=== PATIENT | female | born 1990 | race Two or more races ===

== ENCOUNTER 2024-02-25 11:56 | Emergency (ER) | payer MEDICAID, SELFPAY ==
[2024-02-25 12:10] VITALS: BP 151/93; PULSE 83; RESP 19; TEMP 37; O2SAT 98
--- NOTE | 2024-02-25 12:17 | EKG_ITS ---
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
--- NOTE | 2024-02-25 12:17 | XR_ITS ---
Examination: PA lateral chest 2 views Technique: Upright PA lateral chest 2 views Exam date and time: February 25, 2024 1238 hrs. Indications: Chest pain today Findings: Normal heart size Lungs are clear. The osseous structures are intact Impression: No active disease
--- NOTE | 2024-02-25 12:18 | PD.EDRME ---
Rapid Medical Screening Exam RME Arrival date/time: 02/25/24 11:56 33-year-old female with no past medical history presents emergency department complaining of left-sided chest pain with numbness to left arm and neck that started today while she was driving back from school and received bad news. Chief Complaint: Anxiety Vital signs: Vital Signs Temperature 98.6 F 02/25/24 12:10 Pulse Rate 83 02/25/24 12:10 Respiratory Rate 19 02/25/24 12:10 Blood Pressure 151/93 H 02/25/24 12:10 Pulse Oximetry (%) 98 02/25/24 12:10 Oxygen Delivery Method Room Air 02/25/24 12:10 Vital signs reviewed by provider: Yes
[2024-02-25] MEDS: DIAZEPAM 5 MG TABLET PO (12:27)
[2024-02-25 12:43] LABS: Basophils # (Auto) 0.1 Thou/mm3 (0.0-0.2); Basophils % (Auto) 1 % (0-2.5); Eosinophils # (Auto) 0.2 Thou/mm3 (0.0-0.5); Eosinophils % (Auto) 2 % (0-10); Hematocrit 40.5 % (36.0-46.0); Immature Granulocytes % (Auto) 0 % (0-0); Immature Granulocytes Auto 0.02 Thou/mm3 (0.00-0.00); Lymphocytes # (Auto) 1.4 Thou/mm3 (1.0-4.8); Lymphocytes % (Auto) 20 % (10-50); Mean Corpuscular HGB Conc 34.6 g/dl (31.0-37.0); Mean Corpuscular Hemoglobin 29.4 pg (25.0-35.0); Mean Corpuscular Volume 85 fL (80-100); Monocytes # (Auto) 0.5 Thou/mm3 (0.0-0.8); Monocytes % (Auto) 8 % (0-12); Neutrophils # (Auto) 4.9 Thou/mm3 (1.8-7.7); Neutrophils % (Auto) 69 % (37-80); Nucleated Red Blood Cell % 0 /100 WBC (0); Platelet Count 290 Thou/mm3 (140-440); RDW Standard Deviation 41.1 fL (36.4-46.3); Red Blood Count 4.77 Miln/mm3 (4.00-5.20)
[2024-02-25 12:58] LABS: INR 1.1 (0.9-1.3); Partial Thromboplastin Time 22.2 Seconds (22.0-36.0); Prothrombin Time 11.9 Seconds (9.0-12.2)
[2024-02-25 12:59] LABS: B-Type Natriuretic Peptide < 20 pg/mL (0-100)
[2024-02-25 13:00] LABS: Alanine Aminotransferase 14 U/L (10-49); Albumin, Serum 4.5 gm/dL (3.5-5.0); Albumin/Globulin Ratio 1.5 (1.2-2.2); Alkaline Phosphatase 94 U/L (46-116); Anion Gap 9 (7-16); Aspartate Amino Transferase 16 U/L (0-34); BUN/Creatinine Ratio 9 Ratio (12-20); Blood Urea Nitrogen 6 mg/dL (9-23); Calcium 10.1 mg/dL (8.3-10.6); Calcium (Corrected) 10.1 mg/dL (8.5-10.1); Carbon Dioxide 26.5 mMol/L (20.0-31.0); Chloride 103 mMol/L (98-107); Creatinine (Component) 0.7 mg/dL (0.6-1.3); Globulin 3.1 gm/dL (2.3-3.5); Glucose 114 mg/dL (74-106); Magnesium 1.8 mg/dL (1.6-2.6); Osmolality,Calculated 274 (275-295); Potassium 3.3 mMol/L (3.4-5.1); Sodium 138 mMol/L (136-145); Total Protein 7.6 gm/dL (5.7-8.2); Troponin I < 0.002 ng/mL (0.0-0.045); eGFR > 60 See Note
[2024-02-25 13:38] LABS: Collection Type, Urine Clean Catch
[2024-02-25 13:56] LABS: Bacteria,Urine 4+; Bilirubin,Urine Negative (Negative); Blood,Urine 1+ (Negative); Clarity,Urine Turbid (Clear/Hazy); Color,Urine Yellow (Lt Yel-Yel); Glucose, Urine Negative (Negative); Ketones,Urine 1+ (Negative); Leukocyte Esterase,Urine Negative (Negative); Nitrite,Urine Negative (Negative); PH,Urine 6.5 (5.0-7.0); Protein,Urine Trace (Neg - Trace); RBC,Urine < 1 /hpf (0-3); Specific Gravity,Urine 1.027 (1.001-1.035); Squamous Epithelial Cell,Urine 2 /hpf (0-5); Urobilinogen,Urine Negative mg/dL (0.0-1.0); WBC,Urine 1 /hpf (0-5)
[2024-02-25 13:56] LABS: Amphetamine/Methamp Scrn,U Negative (Negative); Barbiturate Screen,Urine Negative (Negative); Benzodiazepines Screen,Urine Negative (Negative); Benzoylecgonine Screen, Ur Negative (Negative); Fentanyl Screen,Urine Negative (Negative); Opiate Screen,Urine Negative (Negative); THC Screen,Urine Negative (Negative)
[2024-02-25 13:57] LABS: Culture Indicated,Urine Yes
[2024-02-25 14:03] LABS: HCG Qualitative,Urine Negative
--- NOTE | 2024-02-25 15:06 | PD.EDANX ---
ED Anxiety RME/HPI General Chief Complaint: Anxiety Stated Complaint: LEFT SIDED FACIAL/ARM TINGLING, ANXIOUS Time Seen by Provider: 02/25/24 12:19 Source: patient Arrival date/time: 02/25/24 11:56 33-year-old female with no past medical history presents emergency department complaining of left-sided chest pain with numbness to left arm and neck that started today while she was driving back from school and received bad news. Patient denies any fever, chills, n/v, diarrhea, cough, sob, or any other associated symptoms. Mode of arrival: ambulatory Limitations: no limitations RME / HPI RME / HPI narrative: 02/25/24 11:56 33-year-old female with no past medical history presents emergency department complaining of left-sided chest pain with numbness to left arm and neck that started today while she was driving back from school and received bad news. Related Data Home Medications ?Medication ?Instructions ?Recorded ?Confirmed albuterol sulfate 90 mcg/actuation 2 puff inhalation Q4H PRN sob 02/05/18 04/24/20 aerosol inhaler metoclopramide HCl 10 mg tablet 10 mg PO TID PRN n/v 04/24/20 04/24/20 omeprazole 40 mg capsule,delayed 40 mg PO QDAY 04/24/20 04/24/20 release ondansetron HCl 8 mg tablet 8 mg PO TID PRN n/v 04/24/20 04/24/20 Previous Rx's ?Medication ?Instructions ?Recorded promethazine 25 mg rectal 25 mg CA Q6H PRN nausea and 04/24/20 suppository vomiting #12 ea ibuprofen 800 mg tablet 800 mg PO Q6H PRN pain #10 tabs 01/08/21 sulfacetamide sodium 10 % eye 2 drp ophthalmic (eye) Q3H #5 mL 09/18/21 drops (Bleph-10) montelukast 10 mg tablet 10 mg PO QDAY #30 tabs 11/01/21 prednisone 20 mg tablet 20 mg PO QDAY #7 tabs 11/01/21 sulfamethoxazole 800 1 tab PO BID #20 tabs 11/01/21 mg-trimethoprim 160 mg tablet (Bactrim DS) meloxicam 7.5 mg tablet 7.5 mg PO QDAY #10 tabs 10/10/22 albuterol sulfate 90 mcg/actuation 1 inh inhalation QID #6.7 grams 03/16/22 aerosol inhaler pantoprazole 40 mg tablet,delayed 40 mg PO QDAY #30 tabs 05/07/22 release (Protonix) Allergies Allergy/AdvReac Type Severity Reaction Status Date / Time Penicillins Allergy Intermediate Hives Verified 05/07/22 10:18 adhesive tape Allergy Rash Verified 05/07/22 10:18 metoclopramide [From Reglan] Allergy Anxiety Verified 05/07/22 10:18 sulfamethoxazole Allergy Hives Verified 05/07/22 10:18 [From Bactrim] trimethoprim [From Bactrim] Allergy Hives Verified 05/07/22 10:18 Review of Systems Review of Systems Systems Reviewed: All systems reviewed, normal except as documented Constitutional Constitutional: Reports system reviewed and no additional complaints, except as documented, Denies body ache(s), Denies chills and Denies fever(s) Eyes Eyes: Reports system reviewed and no additional complaints, except as documented and Denies change in vision ENT Ears, Nose, Mouth, and Throat: Reports system reviewed and no additional complaints, except as documented, Denies disequilibrium, Denies dizziness, Denies sore throat and Denies vertigo Cardiovascular Cardiovascular: Reports system reviewed and no additional complaints, except as documented, Reports chest pain and Denies dyspnea Respiratory Respiratory: Reports system reviewed and no additional complaints, except as documented, Denies chest congestion, Denies cough and Denies dyspnea Gastrointestinal Gastrointestinal: Reports system reviewed and no additional complaints, except as documented, Denies abdominal pain, Denies nausea and Denies vomiting Musculoskeletal Musculoskeletal: Reports system reviewed and no additional complaints, except as documented, Denies abnormal gait and Denies arthralgias Integumentary/Breasts Skin/Breast: Reports system reviewed and no additional complaints, except as documented, Denies erythema, Denies rash and Denies wounds Neurologic Neurologic: Reports system reviewed and no additional complaints, except as documented, Denies abnormal gait, Denies disequilibrium, Denies dizziness and Denies vertigo Past Medical History Past Medical History CARDIAC: Negative Cardiac Disorders or Congestive Heart Failure RESPIRATORY: Positive Asthma; Negative Chronic Obstructive Pulmonary Disease (COPD) GASTROINTESTINAL: Positive Gastrointestinal Disorders GENITOURINARY: Negative Renal Disease ENDOCRINE: Negative Diabetes Mellitus Type 1 or Diabetes Mellitus Type 2 HEMATOLOGIC: Negative Sickle Cell Disease Surgical History SURGICAL: Positive Abdominal Surgery (gastric sleeve 2020), Hysterectomy and Section Social History SMOKING STATUS: Never smoker SUBSTANCE USE: does not use ED Exam General Limitations: Present no limitations General appearance: Present alert and in no apparent distress Head Head exam: Present atraumatic Eye Eye exam: Present normal appearance, PERRL and EOMI ENT ENT exam: Present normal exam, normal oropharynx and mucous membranes moist Neck Neck exam: Present normal inspection, full ROM and trachea midline Chest Chest inspection: Present normal inspection and symmetric chest wall rise Respiratory Respiratory exam: Present normal lung sounds bilaterally Cardiovascular Cardiovascular exam: Present regular rate, normal rhythm and normal heart sounds Abdominal Exam Abdominal exam: Present soft and normal bowel sounds Extremities Exam Extremities exam: Present normal inspection and full ROM Back Exam Back exam: Present normal inspection and full ROM Neurological Exam Neurological exam: Present alert, oriented X3 and CN II-XII intact Psychiatric Psychiatric exam: Present normal affect and normal mood Skin Skin exam: Present warm, dry, intact and normal color Course Quality Measures none Orders Category Date Time Status EKG (ED ONLY) *Do not use* NOW Care 02/25/24 12:17 Completed EKG (ED Only) Stat Exams 02/25/24 12:17 Draft XR chest 2V Stat Exams 02/25/24 12:17 Completed B-Type Natriuretic Peptide Stat Lab 02/25/24 12:32 Completed CBC Stat Lab 02/25/24 12:32 Completed Comprehensive Metabolic Panel Stat Lab 02/25/24 12:32 Completed Drug Screen,Urine Stat Lab 02/25/24 13:17 Completed HCG Qualitative,Urine Stat Lab 02/25/24 13:24 Completed Magnesium Stat Lab 02/25/24 12:32 Completed Partial Thromboplastin Time Stat Lab 02/25/24 12:32 Completed Prothrombin Time with INR Stat Lab 02/25/24 12:32 Completed Troponin I Stat Lab 02/25/24 12:32 Completed Urinalysis, C/S if Indicated Stat Lab 02/25/24 13:24 Completed Urine Culture Stat Lab 02/25/24 13:24 Received Diazepam [Valium] Med 02/25/24 12:18 Discontinued 5 mg PO X1 ONE Vital Signs Vital signs: Vital Signs Temperature 98.6 F 02/25/24 12:10 Pulse Rate 83 02/25/24 12:10 Respiratory Rate 19 02/25/24 12:10 Blood Pressure 151/93 H 02/25/24 12:10 Pulse Oximetry (%) 98 02/25/24 12:10 Oxygen Delivery Method Room Air 02/25/24 12:10 98% RA WNL. Procedures -ED EKG Interpretation #1: Date of EK02/25/24 Time of EK:34 Rate: 75 Interpretation: Interpreted by me EKG Impression: Normal sinus rhythm, No acute ST-T changes, No ectopy and No ischemic changes Anxiety MDM Narrative MDM Narrative: 33-year-old female with no past medical history presents emergency department complaining of left-sided chest pain with numbness to left arm and neck that started today while she was driving back from school and received bad news. Patient denies any fever, chills, n/v, diarrhea, cough, sob, or any other associated symptoms. CBC, CMP, U/A, Chest XR unremarkable. Troponin WNL, EKG SR. Patient likely suffered from acute anxiety attack due to bad news and family crisis. Patient denies any SI, HI, or hallucinations. Patient GCS 15 reporting symptoms improved after medication. Patient data External records reviewed:: [facility] previous records Clinical information provided by:: patient Social determinants that could affect healthcare access:: none Patient has the following chronic illnesses:: see chart How is presenting disease/condition affected by chronic disease/condition?: no chronic disease Evaluation data The following diagnostics were reviewed and interpreted by me:: lab results, radiology exam(s) and EKG tracing(s) Lab and/or radiology exams considered but not ordered:: ordered Interpretation Summary: interpreted by me Medications / Prescriptions Medications or Prescriptions considered but not ordered:: n/a Medication administrations:: Medication Administration History Discontinued Medications Diazepam (Diazepam 5 Mg Tablet) 5 mg PO X1 ONE Stop: 02/25/24 12:19 Last Admin: 02/25/24 12:27 Dose: 5 mg Documented By: VG Comments: SCANNER NOT WORKING ON OTHER WOW, PT IS MANUALLY ENTERED, MED SCANNED ON DIFFERENT WOW Consultations Consultation(s) initiated? (list below): No Diagnosis Differential diagnosis anxiety: hyperventilation, panic disorder and acute anxiety Most likely diagnosis given after review of the tests above:: non cardiac chest pain Admission Indicated Admission indicated?: not indicated Admission Request Was there a request for admission?: No Disposition Plan Disposition Plan: Discharge Discharge Attestation Discharge Attestation: The patient and all family members were given an opportunity to ask questions and understood the discharge instructions. Discharge instructions specifically effects, indications for sooner follow up or return to the emergency department, and the expected course of current diagnosis. Patient condition: Stable Discharge Plan Plan Patient Disposition: HOME (Self Care) Disposition Comment: Stable Prescriptions/Referrals Prescriptions/Med Rec: No Action ondansetron HCl 8 mg tablet 8 mg PO TID PRN (Reason: n/v) omeprazole [Prilosec] 40 mg Capsule,Delayed Release(Dr/Ec) 40 mg PO QDAY metoclopramide HCl 10 mg tablet 10 mg PO TID PRN (Reason: n/v) promethazine 25 mg suppository 25 mg CA Q6H PRN (Reason: nausea and vomiting) Qty: 12 0RF Rx Instructions: 1-2 suppository every 6 hours as needed for nausea. Do not use with Metoclopramide(Reglan). sulfamethoxazole-trimethoprim [Bactrim DS] 800-160 mg tablet 1 tab PO BID Qty: 20 0RF prednisone 20 mg tablet 20 mg PO QDAY Qty: 7 0RF Taper: Prednisone Taper 20 mg DAILY for 2 Days and 0 Hour 10 mg DAILY for 2 Days and 0 Hour 5 mg DAILY for 7 Days and 0 Hour montelukast 10 mg tablet 10 mg PO QDAY Qty: 30 0RF albuterol sulfate 90 mcg/actuation Hfa Aerosol Inhaler 2 puff INHALATION Q4H PRN (Reason: sob) ibuprofen 800 mg tablet 800 mg PO Q6H PRN (Reason: pain) Qty: 10 0RF sulfacetamide sodium [Bleph-10] 10 % drops 2 drp ophthalmic (eye) Q3H Qty: 5 0RF albuterol sulfate 90 mcg/actuation HFA aerosol inhaler 1 inh inhalation QID Qty: 6.7 1RF pantoprazole [Protonix] 40 mg tablet,delayed release (DR/EC) 40 mg PO QDAY Qty: 30 0RF meloxicam 7.5 mg tablet 7.5 mg PO QDAY Qty: 10 0RF Referrals: Morteza Matthews MD [Primary Care Provider] - In 1 week Problem List Clinical Impression: Chest pain, non-cardiac Patient/Caregiver Discharge Instructions Discharge Activity: activity as tolerated Education Materials: ED Chest Pain, Noncardiac Additional Instructions: Follow-up with primary care provider upon discharge. Return to emergency department for any worsening symptoms or as needed for Print Language: Latvian Stand Alone Forms: Ca Award Info., Work/School Release, Patient Portal Info Letter PA/DISTRICT OR DISTRICT OFFICE DIRECTOR Supervising Physician PA/DISTRICT OR DISTRICT OFFICE DIRECTOR Supervising Physician: Dr. Guerrero
== END 2024-02-25 15:10 | disposition home or self-care (01) ==
PROVIDERS: Emergency Provider Emergency Medicine; PCP Internal Medicine
DX: R07.89 Other chest pain (principal); R20.0 Anesthesia of skin
CPT/HCPCS: 36415; 71046; 80053; 80307; 81001; 81025; 83735; 83880; 84484; 85025; 85610; 85730; 87077; 87086; 87186; 93005; 99283; A9270